=== PATIENT | male | born 1965 | race Caucasian/White ===

== ENCOUNTER 2016-10-09 11:33 | Inpatient (IN) | payer BC ==
[~2016-10-09] VITALS: Ht 190.5 cm; Wt 77.2 kg
[2016-10-09 12:19] LABS: BASO # 0.1 x10^3/uL (0.0-0.2); BASO % 1 % (0-3); EOS % 5 % (0-3); HEMATOCRIT 48.8 % (39.0-53.0); HEMOGLOBIN 16.6 g/dL (13.0-17.5); LYMPH # 1.9 x10^3/uL (1.0-4.8); LYMPH % 23 % (24-48); MEAN CORPUSCULAR HEMOGLOBIN 32 pg (25-35); MEAN CORPUSCULAR HGB CONC 34 g/dL (31-37); MEAN CORPUSCULAR VOLUME 94 fL (79-100); MONO % 5 % (0-9); NEUT % 66 % (31-73); PLATELET COUNT 261 x10^3/uL (140-400); RED BLOOD COUNT 5.22 x10^6/uL (4.30-5.70); RED CELL DISTRIBUTION WIDTH 13.6 % (11.5-14.5); WHITE BLOOD COUNT 8.1 x10^3/uL (4.0-11.0)
--- NOTE | 2016-10-09 12:19 | PHYS DOC ---
Past Medical History Past Medical History: Other Additional Past Medical Histor: emphysema Past Surgical History: Tonsillectomy, Other Additional Past Surgical Histo: adenoids, hernia repairs, R fourth finger Additional Information: 2 PAD smoker Alcohol Use: Occasionally Drug Use: None Adult General Chief Complaint Chief Complaint: UPPER EXTREMITY NUMBNESS [facility] Patient is a 51 year old male who presents with left dorsum hand numbness that gradually spread to involve dorsum of thumb, complete dorsum of hand, and now lateral and posterior aspect of forearm. He woke with initial symptoms at 0600 today. Was feeling fine when he went to bed. Symptoms are constant. He denies chest pain, dyspnea, tingling, weakness, headache, vision changes, dizziness, back pain. No differences with range of motion of shoulder or neck. Review of Systems Review of Systems Constitutional: Denies fever or chills [] Eyes: Denies change in visual acuity, redness, or eye pain [] HENT: Denies nasal congestion or sore throat [] Respiratory: Denies cough or shortness of breath [] Cardiovascular: No additional information not addressed in HPI [] GI: Denies abdominal pain, nausea, vomiting, bloody stools or diarrhea [] : Denies dysuria or hematuria [] Musculoskeletal: Denies back pain or joint pain [] Integument: Denies rash or skin lesions [] Neurologic: Denies headache or focal weakness [] Endocrine: Denies polyuria or polydipsia [] Allergies Allergies Allergies Coded Allergies Type Severity Reaction Last Updated Verified No Known Drug Allergies 10/09/16 No Physical Exam Physical Exam Constitutional: Well developed, well nourished, no acute distress, non-toxic appearance. [] HENT: Normocephalic, atraumatic, bilateral external ears normal, oropharynx moist, no oral exudates, nose normal. [] Eyes: PERRLA, EOMI, conjunctiva normal, no discharge. [] Neck: Normal range of motion, no tenderness, supple. [] Cardiovascular:Heart rate regular rhythm [] Lungs & Thorax: Bilateral breath sounds clear to auscultation [] Abdomen: Bowel sounds normal, soft, no tenderness. [] Skin: Warm, dry, no erythema, no rash. [] Back: Normal range of motion. [] Extremities: No tenderness, ROM intact, no edema. [] Neurologic: Alert and oriented X 3, normal motor function, normal sensory function with the exception of diminished sensation to light touch in the posterolateral aspect of left forearm and dorsum of hand and thumb, no focal deficits noted, cranial nerves II through XII intact, no nystagmus, no extremity drift. [] Psychologic: Affect normal, judgement normal, mood normal. [] Current Patient Data Vital Signs Vital Signs Date Time Temp Pulse Resp B/P Pulse Ox O2 Delivery O2 Flow Rate FiO2 10/09/16 13:00 71 19 116/81 98 10/09/16 12:00 Room Air 10/09/16 11:50 97.7 97.7 Lab Values Laboratory Tests Test 10/09/16 11:43 10/09/16 12:25 White Blood Count 8.1x10^3/uL (4.0-11.0) Red Blood Count 5.22x10^6/uL (4.30-5.70) Hemoglobin 16.6g/dL (13.0-17.5) Hematocrit 48.8% (39.0-53.0) Mean Corpuscular Volume 94fL (79-100) Mean Corpuscular Hemoglobin 32pg (25-35) Mean Corpuscular Hemoglobin Concent 34g/dL (31-37) Red Cell Distribution Width 13.6% (11.5-14.5) Platelet Count 261x10^3/uL (140-400) Neutrophils (%) (Auto) 66% (31-73) Lymphocytes (%) (Auto) 23% (24-48) L Monocytes (%) (Auto) 5% (0-9) Eosinophils (%) (Auto) 5% (0-3) H Basophils (%) (Auto) 1% (0-3) Neutrophils # (Auto) 5.4x10^3uL (1.8-7.7) Lymphocytes # (Auto) 1.9x10^3/uL (1.0-4.8) Monocytes # (Auto) 0.4x10^3/uL (0.0-1.1) Eosinophils # (Auto) 0.4x10^3/uL (0.0-0.7) Basophils # (Auto) 0.1x10^3/uL (0.0-0.2) Sodium Level 135mmol/L (136-145) L Potassium Level 4.5mmol/L (3.5-5.1) Chloride Level 100mmol/L (98-107) Carbon Dioxide Level 28mmol/L (21-32) Anion Gap 7 (6-14) Blood Urea Nitrogen 8mg/dL (8-26) Creatinine 0.8mg/dL (0.7-1.3) Estimated GFR (Cockcroft-Gault) 101.5 Glucose Level 86mg/dL (70-99) Calcium Level 9.3mg/dL (8.5-10.1) Troponin I Quantitative < 0.017ng/mL (0.000-0.055) Urine Opiates Screen Neg (NEG) Urine Methadone Screen Neg (NEG) Urine Barbiturates Neg (NEG) Urine Phencyclidine Screen Neg (NEG) Urine Amphetamine/Methamphetamine Pos (NEG) Urine Benzodiazepines Screen Neg (NEG) Urine Cocaine Screen Neg (NEG) Urine Cannabinoids Screen Pos (NEG) Urine Ethyl Alcohol Pos (NEG) Laboratory Tests 10/09/16 11:43 Laboratory Tests 10/09/16 11:43 EKG EKG EKG as interpreted by me as normal sinus rhythm, rate 67, no ST-T changes, normal intervals, no ectopy Radiology/Procedures Radiology/Procedures Chest xray as interpreted by me with no acute cardiopulmonary disease process CT head without contrast Impression: No acute intracranial abnormality is seen. Paranasal sinus mucosal thickening. DICTATED and SIGNED BY: KATIE MISTRY MD DATE: 10/09/16 1230 Course & Med Decision Making Course & Med Decision Making Pertinent Labs and Imaging studies reviewed. (See chart for details) Workup is largely unremarkable other than UDS concerning for substance abuse. Given symptoms, will admit for concern of stroke. He is not a candidate for thrombolysis due to long time of onset of symptoms. Discussed case with Dr. Jay, who will admit. Neurology consult placed. Dragon Disclaimer Dragon Disclaimer This electronic medical record was generated, in whole or in part, using a voice recognition dictation system. Departure Departure Impression: Primary Impression: Left arm numbness Disposition: ADMITTED INPATIENT Condition: STABLE Tomasa HUBBARD MD Oct 09, 2016 12:19
[2016-10-09 12:30] LABS: CALCIUM 9.3 mg/dL (8.5-10.1); CREATININE 0.8 mg/dL (0.7-1.3); GFR 101.5; POTASSIUM 4.5 mmol/L (3.5-5.1)
--- NOTE | 2016-10-09 12:33 | RAD ---
2 view CXR: Clinical indications: Left arm numbness this morning. Findings: Hyperinflation is seen consistent with COPD. Old granulomatous disease is evident. No acute lung infiltrate or pleural effusion or pulmonary edema or lung mass or pneumothorax is seen. Calcified lymph nodes are seen within the mediastinum and both lemuel due to old granulomatous disease. The heart size, pulmonary vasculature, mediastinum and both lemuel are otherwise unremarkable. The osseous structures appear intact. Impression: No acute radiographic abnormality is seen. COPD.
--- NOTE | 2016-10-09 12:36 | RAD ---
Clinical indications: Left posterior hand and lateral forearm numbness for 6 hours.. Technique: Noncontrast axial cross sectional scanning of the head was performed. PQRS Compliance Statement: One or more of the following individualized dose reduction techniques were utilized for this examination: 1. Automated exposure control 2. Adjustment of the mA and/or kV according to patient size 3. Use of iterative reconstruction technique Findings: No acute intracranial hemorrhage or midline shift or mass-effect or hydrocephalus or extra-axial fluid collection is seen. No focal hypodense area or sulci effacement is seen to indicate an acute infarct or edema radiographically. No skull fracture or pneumocephalus is seen. There is mild mucosal thickening of the upper right maxillary sinus. The maxillary sinuses are not completely seen in this study. There is mild mucosal thickening of the ethmoid sinuses bilaterally. There is a mucous retention cyst or polyp measuring 18 mm in size within the left sphenoid sinus. Impression: No acute intracranial abnormality is seen. Paranasal sinus mucosal thickening.
[2016-10-09 12:42] LABS: BARBITURATES NEG (NEG); BENZODIAZEPINES NEG (NEG); CANNABINOIDS POS (NEG); COCAINE NEG (NEG); METHADONE NEG (NEG); OPIATES NEG (NEG); PHENCYCLIDINE NEG (NEG)
[2016-10-09 12:44] LABS: ETHANOL, URINE POS (NEG)
--- NOTE | 2016-10-09 12:50 | EKG ---
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
[2016-10-09] MEDS ORDERED: ONDANSETRON PF 4 MG/2 ML VIAL. IV PRN ×2 (13:15→17:15)
[2016-10-09] MEDS ORDERED: ACETAMINOPHEN 325 MG TABLET. PO PRN ×2 (13:15→17:15)
--- NOTE | 2016-10-09 13:48 | ACF ---
Admission Forms Criteria NEUROLOGY GRG Clinical Indications for Admission to Inpatient Care (Place ' X' for any and all applicable criteria): Hospital admission is needed for appropriate care of the patient because of 1 or more of the following: [ ]I. Encephalitis [ ]II. Severe MAKE UP MAN infections indicated by 1 or more of the following(1)(2)(3) : [ ]a) Intracranial abscess [ ]b) Spinal abscess or myelitis [ ]c) Tuberculous or other nonbacterial, nonviral MAKE UP MAN infection(8) [ ]III. Vasculitis and 1 or more of the following(14)(15): []a) Altered mental status that is severe or persistent or other acute neurologic change []b) Psychosis []c) Seizure [ ]IV. Status epilepticus or repetitive seizures not controlled with emergent treatment [A] (7)(8) [ ]V. Altered mental status that is severe or persistent [ ]. Transient alteration in consciousness with high-risk etiology; examples include (12)(13): [ ]a) Cardiovascular source [ ]b) Cataplexy [ ]VII. Cerebral aneurysm requiring ANY ONE of the following(14): [ ]a) IV antihypertensives or vasoactive agents [ ]b) Sedation and analgesia for suspected leak [ ]c) Need for external ventricular drainage and cerebral perfusion pressure monitoring [ ]d) Emergent evaluation to determine need for surgical clipping or endovascular coiling by interventional radiology. If surgery is required ( Also use Craniotomy, Supratentorial, for Surgery of Bleeding Intracranial Aneurysm (for bleeding aneurysm) or Craniotomy, Supratentorial (for nonbleeding aneurysm) as appropriate. [X]VIII. New-onset severe neurologic symptom requiring inpatient care indicated by ANY ONE of the following: [ ]a) Aphasia(15) [ ]b) Weakness (grade 3 or less) [ ]c) Paralysis (eg, hemiplegia) [ ]d) Spasticity(16) [ ]e) Dystonia [ ]e) Ataxia(17) [ ]f) Amnesia(18) [ ]g) Involuntary movements(19) [ ]h) Vertigo [ ] Visual loss [X]i) Other severe neurologic finding (eg, papilledema, mass effect on imaging, myoclonus not treatable at alternative level of care (eg, observation care) [ ]IX. Guillain-Berea syndrome(20) [ ]X. Myasthenia gravis crisis or inpatient monitoring need as indicated by 1 or more of the following(21): [ ]a) Intensive treatment (eg, course of plasmapheresis) with inadequate outpatient situation to monitor patients status [ ]b) Inadequate airway protection [ ]c) Respiratory insufficiency requiring intubation or inpatient. monitoring [ ]d) Progressive dysphagia with failure to thrive [ ]XI. Multiple sclerosis or other acute demyelinating disease requiring inpatient care as indicated by 1 or more of the following (22)(23): [ ]a) Acute severe deterioration requiring inpatient treatment (eg, IV steroids, plasmapheresis, close observation) [ ]b) Acute complication requiring inpatient care (eg, sepsis, severe decubitus, aspiration) [ ]XII.Parkinson disease requiring inpatient care (Also use Optimal Recovery Care Criteria or General Recovery Criteria as appropriate) indicated by 1 or more of the following(25): [ ]a) Infection (eg, aspiration pneumonia) not treatable at alternative level of care [ ]b Dehydration that is severe or persistent [ ]c) Life-threatening agitation or psychotic behavior not treatable on emergency, observation care, or alternative level (eg, residential) basis [ ]d) Severe medication withdrawal effects (eg, freezing, neuroleptic malignant syndrome) not responsive to emergency and observation care treatment ( as appropriate) [ ]e) Other severe manifestation not treatable at alternative level of care [ ]XII. Amyotrophic lateral sclerosis with inpatient care needs as indicated by ANY ONE of the following(26): [ ]a) Acute complications (eg, aspiration pneumonia, sepsis ) requiring inpatient care ( see other optimal Recovery Guideline as appropriate) [ ]b) Dehydration that is severe persistent AND artificial support desired [ ]c) Inadequate airway protection AND artificial support desired [ ]d) Severe ventilatory insufficiency AND artificial support desired [ ]XIII. Myasthenia gravis crisis or inpatient monitoring need as indicated by 1 or more of the following(21): [] a) Inadequate airway protection []b) Respiratory insufficiency requiring intubation or inpatient monitoring []c) Progressive dysphagia with failure to thrive []d) Intensive treatment (e.g., course of plasmapheresis) with inadequate outpatient situation to monitor patients status [ ]XIV. Multiple sclerosis or other acute demyelinating disease requiring inpatient care indicated by 1 or more of the following[C](36)(43)(44)(45)(46): []a) Acute severe deterioration requiring inpatient treatment (eg, IV steroids, plasmapheresis, close observation) []b) Acute complication requiring inpatient care (eg, sepsis, severe decubitus, aspiration) [ ]XV. Intracranial hypertension (e.g., pseudotumor cerebri) requiring inpatient care (e.g., acute visual loss, inadequate oral intake) (47)(48)(49) [ ]XVI. Parkinson disease requiring inpatient care (Also use Optimal Recovery Care Criteria or General Recovery Criteria as appropriate) indicated by 1 or more of the following(25): [] a) Infection (e.g., aspiration pneumonia) not treatable at alternative level of care []b) Volume depletion not responsive to emergency and observation care treatment (as appropriate) []c) Life-threatening agitation or psychotic behavior not treatable on emergency, observation care, or alternative level (e.g., residential) basis []d) Severe medication withdrawal effects (e.g., freezing, neuroleptic malignant syndrome) not responsive to emergency and observation care treatment (as appropriate) []e) Other severe manifestation not treatable at alternative level of care [ ]XVII. Amyotrophic lateral sclerosis with inpatient care needs as indicated by1 or more of the following(42): []a) Acute complications (eg, aspiration pneumonia, sepsis) requiring inpatient care (see other Optimal Recovery Guideline or General Recovery Guideline as appropriate) []b) Dehydration that is severe or persistent AND artificial support desired []c) Inadequate airway protection AND artificial support desired []d) Severe ventilatory insufficiency AND artificial support desired [ ]XVIII. Severe myopathy, neuropathy, or other neuromuscular disease indicated by 1 or more of the following(42)(52)(53)(54): []a ) New-onset severe diffuse weakness (eg, strength 3/5 or less) []b) Severe dysphagia []c) Dyspnea at rest or with minimal exertion (new) []d) Inadequate airway protection []e) Inadequate ventilation indicated by 1 or more of the following : i) Partial pressure of carbon dioxide greater than 44 mm Hg ( 5.9 kPa) (new) ii) Reduced peak expiratory flow rate (new) iii) Vital capacity less than 50% of predicted (less than 15 mL/kg) iv) Peak inspiratory force less negative than -30 cm H2O (- 2942 Pa) [ ]XVII.Complications of congenital or degenerative disease (eg, infection, seizures, dehydration, injury) not responsive to emergency and observation care treatment (as appropriate ) [C](16)(29)(30) [ ]XVIII.Suspected or confirmed nerve or muscle toxic injury, including ANY ONE of the following: [ ]a) Rhabdomyolysis(31) i) Acute renal failure ii) Dehydration that is severe or persistent iii) Altered mental status that is severe or persistent iv) Electrolyte abnormality that remains after emergency or observation level care ( as appropriate) [ ]b) Botulism(32) [ ]c) Other severe toxin-induced sign or symptom [ ]XIX. Neurologic trauma requiring inpatient treatment (medical) indicated by ANY ONE of the following(33)(34): [ ]a) Vital signs or neurologic signs more frequently than every 4 hours [ ]b) Hyperosmolar therapy [ ]c) Respiratory monitoring [ ]d) Intracranial pressure monitoring and treatment [ ]e) Stabilization and immobilization device placement (eg, braces, body jacket) [ ]f) Intubation & mechanical ventilation for airway protection or therapeutic hyperventilation [ ]g) Other treatment or monitoring needed that requires inpatient level of care [ ]XX.Complications of neurologic devices (eg, ventricular shunt, neurostimulator) requiring 1 or more of the following(35)(36): [ ]a) IV antibiotics with monitoring while awaiting culture results [ ]b) Monitoring for hydrocephalus [ ]XXI. Neurology condition symptom, or finding for which emergency and observation care have failed or are not considered appropriate. See General Criteria: Observation Care ISC, General Admission Criteria GRG, or Pediatric General Admission Criteria GRG guideline as appropriate. The original [facility] content created by [facility] has been revised. The portions of the content which have been revised are identified through the use of italic text or in bold, and [facility] has neither reviewed nor approved the modified material. All other unmodified content is copyright [facility] Please see references footnoted in the original [facility] edition 2016 Admission Criteria Met?: Yes JEFRY ACEVEDO Oct 09, 2016 13:48
[2016-10-09 14:16] VITALS: BP 138/83
[2016-10-09] MEDS ORDERED: DEXT30CA6 PO (14:22)
[2016-10-09 14:40] VITALS: BP 138/83
[2016-10-09] MEDS: ASPIRIN 325 MG TABLET PO SCH (15:57)
--- NOTE | 2016-10-09 16:43 | PDOC2 ---
NEUROLOGY CONSULT Date of Admission Date of Admission DATE: 10/09/16 TIME: 16:24 Reason for Consult Reason for Consult: IMPRESSION: Left UE numbness. COPD Emphysema. PVD. Peripheral neuropathy possible. ADHD per Hx. Smoking Drinking. Marijuana use. Amphetamine positive in test but he stated he takes 30 mg Adderall daily. RECOMMENDATIONS/PLAN: ASA 325 mg daily. Vit B1 100 mg daily. Neurontin 100 mg tid. Brain MRI w/o contrast. Carotid A US + Doppler. Echo + bubble study. Fasting lipid panel in a.m Lab: Vit B12 HISTORY OF THE PRESENT ILLNESS: 51-y-old male patient with above medical diseases and long standing Hx of smoking and drinking has symptoms of numbness in his left hand radial side to forearm and elbow area since he wake up in the morning of 10/09. No motor deficits complained. PAST MEDICAL HISTORY: Please see above. PAST SURGERY HISTORY: Hernia Repair Right finger surgery. ALLERGY: NKDA Unknown MEDICATIONS: Refer to [facility] FAMILY HISTORY: Non contributory. SOCIAL HISTORY: Lives at home. Denies illicit drug use. He smokes 2 pack of cigarettes a day for 40 years. He drinks 24 beers a week for 35 years. REVIEW OF SYSTEMS: Constitutional: No cachexia. Head: No recent traumatic brain or head injury. Skin: No edema, or rash. Ear: No infection. Eyes: No vision loss or color blindness. Nose: No bleeding or purulent discharges. Hearing: No hearing decrease. Neck: No injury. Cardiac: No WI, arrhythmia. Pulmonary: COPD. GI: No GI ulcer, GI bleeding. Urinary/genital: No dysuria, incontinence, urinary retention. Endocrinologic: No cousin face, craniofacial dysmorphism, polydactyly. Skeletomuscular: No muscular atrophy, deformity. Neurological: see HP. Psychiatric: Smoking, drinking and using marijuana. Otherwise, not [id number] review of systems. PHYSICAL EXAMINATION: General appearance is in subacute distress. HEENT: Normocephalic and nontraumatic. Eyes, nose, ears, and throat are unremarkable. Neck is supple. No lymphadenopathy. No crepitus. Cardiovascular: S1, S2, regular rate and rhythm. Pulmonary: Clear to auscultation bilaterally. Abdomen: Bowel sounds are positive. Abdomen is soft, nontender, and nondistended. Extremities: No rash, lesions, or edema. No restriction of range of motion NEUROLOGICAL EXAMINATION: Alert Oriented to time, place and person. PERRL. EOMI. CN: no focal findings. Muscle tone: within normal. Muscle strength: 5 DTR: 2 Plantar reflex: Flexor/Neutral response bilaterally Gait: not examined in bed. Sensory exam: seemed mildly decreased to touch in radial aspect of left hand. No acute cerebellar signs elicited. Current Medications Current Medications Current Medications Ondansetron HCl (Zofran) 4 mg PRN Q8HRS PRN IV NAUSEA/VOMITING; Start 10/09/16 at 13:15; Stop 10/10/16 at 13:14 Acetaminophen (Tylenol) 650 mg PRN Q4HRS PRN PO FEVER; Start 10/09/16 at 13:15 ; Stop 10/10/16 at 13:14 Aspirin (Olga Aspirin) 325 mg DAILYWBKFT PO Last administered on 10/09/16t 15: 57; Start 10/09/16 at 16:00 Active Scripts Active Reported Adderall Xr 30 Mg Capsule (Dextroamphetamine/Amphetamine) 30 Mg Cap.er.24h 30 Mg PO DAILY Allergies Allergies: Coded Allergies: No Known Drug Allergies (Unverified , 10/09/16) Vitals VITALS Vital Signs Date Time Temp Pulse Resp B/P Pulse Ox O2 Delivery O2 Flow Rate FiO2 10/09/16 15:07 Room Air 10/09/16 14:40 98.3 68 138/83 99 98.3 10/09/16 14:16 22 Labs Labs Laboratory Tests Test 10/09/16 11:43 10/09/16 12:25 White Blood Count 8.1x10^3/uL (4.0-11.0) Red Blood Count 5.22x10^6/uL (4.30-5.70) Hemoglobin 16.6g/dL (13.0-17.5) Hematocrit 48.8% (39.0-53.0) Mean Corpuscular Volume 94fL (79-100) Mean Corpuscular Hemoglobin 32pg (25-35) Mean Corpuscular Hemoglobin Concent 34g/dL (31-37) Red Cell Distribution Width 13.6% (11.5-14.5) Platelet Count 261x10^3/uL (140-400) Neutrophils (%) (Auto) 66% (31-73) Lymphocytes (%) (Auto) 23% (24-48) Monocytes (%) (Auto) 5% (0-9) Eosinophils (%) (Auto) 5% (0-3) Basophils (%) (Auto) 1% (0-3) Neutrophils # (Auto) 5.4x10^3uL (1.8-7.7) Lymphocytes # (Auto) 1.9x10^3/uL (1.0-4.8) Monocytes # (Auto) 0.4x10^3/uL (0.0-1.1) Eosinophils # (Auto) 0.4x10^3/uL (0.0-0.7) Basophils # (Auto) 0.1x10^3/uL (0.0-0.2) Sodium Level 135mmol/L (136-145) Potassium Level 4.5mmol/L (3.5-5.1) Chloride Level 100mmol/L (98-107) Carbon Dioxide Level 28mmol/L (21-32) Anion Gap 7 (6-14) Blood Urea Nitrogen 8mg/dL (8-26) Creatinine 0.8mg/dL (0.7-1.3) Estimated GFR (Cockcroft-Gault) 101.5 Glucose Level 86mg/dL (70-99) Calcium Level 9.3mg/dL (8.5-10.1) Troponin I Quantitative < 0.017ng/mL (0.000-0.055) Urine Opiates Screen Neg (NEG) Urine Methadone Screen Neg (NEG) Urine Barbiturates Neg (NEG) Urine Phencyclidine Screen Neg (NEG) Urine Amphetamine/Methamphetamine Pos (NEG) Urine Benzodiazepines Screen Neg (NEG) Urine Cocaine Screen Neg (NEG) Urine Cannabinoids Screen Pos (NEG) Urine Ethyl Alcohol Pos (NEG) Laboratory Tests Test 10/09/16 11:43 10/09/16 12:25 White Blood Count 8.1x10^3/uL (4.0-11.0) Red Blood Count 5.22x10^6/uL (4.30-5.70) Hemoglobin 16.6g/dL (13.0-17.5) Hematocrit 48.8% (39.0-53.0) Mean Corpuscular Volume 94fL (79-100) Mean Corpuscular Hemoglobin 32pg (25-35) Mean Corpuscular Hemoglobin Concent 34g/dL (31-37) Red Cell Distribution Width 13.6% (11.5-14.5) Platelet Count 261x10^3/uL (140-400) Neutrophils (%) (Auto) 66% (31-73) Lymphocytes (%) (Auto) 23% (24-48) Monocytes (%) (Auto) 5% (0-9) Eosinophils (%) (Auto) 5% (0-3) Basophils (%) (Auto) 1% (0-3) Neutrophils # (Auto) 5.4x10^3uL (1.8-7.7) Lymphocytes # (Auto) 1.9x10^3/uL (1.0-4.8) Monocytes # (Auto) 0.4x10^3/uL (0.0-1.1) Eosinophils # (Auto) 0.4x10^3/uL (0.0-0.7) Basophils # (Auto) 0.1x10^3/uL (0.0-0.2) Sodium Level 135mmol/L (136-145) Potassium Level 4.5mmol/L (3.5-5.1) Chloride Level 100mmol/L (98-107) Carbon Dioxide Level 28mmol/L (21-32) Anion Gap 7 (6-14) Blood Urea Nitrogen 8mg/dL (8-26) Creatinine 0.8mg/dL (0.7-1.3) Estimated GFR (Cockcroft-Gault) 101.5 Glucose Level 86mg/dL (70-99) Calcium Level 9.3mg/dL (8.5-10.1) Troponin I Quantitative < 0.017ng/mL (0.000-0.055) Urine Opiates Screen Neg (NEG) Urine Methadone Screen Neg (NEG) Urine Barbiturates Neg (NEG) Urine Phencyclidine Screen Neg (NEG) Urine Amphetamine/Methamphetamine Pos (NEG) Urine Benzodiazepines Screen Neg (NEG) Urine Cocaine Screen Neg (NEG) Urine Cannabinoids Screen Pos (NEG) Urine Ethyl Alcohol Pos (NEG) MALIHA CALABRESE MD Oct 09, 2016 16:43
[2016-10-09] MEDS: THIAMINE 100 MG TABLET. PO SCH (16:44)
[2016-10-09] MEDS: NICOTINE 21MG PATCH. TD PRN (16:45)
[2016-10-09] MEDS ORDERED: HYDROCODONE/APAP 5/325MG TABLET. PO PRN (17:15)
[2016-10-09] MEDS ORDERED: hydrALAZINE 20 MG/ML VIAL. IVP PRN (17:15)
[2016-10-09] MEDS ORDERED: ALBUTEROL SULFATE 2.5 MG/3 ML NEBU. NEB PRN (17:15)
--- NOTE | 2016-10-09 17:15 | PDOC1 ---
History and Physical Social History Smoke: 2 packs per day ALCOHOL: rare Drugs: None Current Problem List Problem List Problems Medical Problems: (1) Arm numbness left Status: Acute (2) Left arm numbness Status: Acute Current Medications Current Medications Current Medications Medications (Trade) Dose Ordered Sig/Paris Start Time Stop Time Status Last Admin Dose Admin Acetaminophen (Tylenol) 650 mg PRN Q4HRS PRN 10/09/16 13:15 10/10/16 13:14 Aspirin (Olga Aspirin) 325 mg DAILYWBKFT 10/09/16 16:00 10/09/16 15:57 325 MG Gabapentin (Neurontin) 100 mg TID 10/09/16 21:00 Nicotine (Nicoderm Cq 21mg) 1 patch PRN DAILY PRN 10/09/16 16:45 10/09/16 16:45 1 PATCH Ondansetron HCl (Zofran) 4 mg PRN Q8HRS PRN 10/09/16 13:15 10/10/16 13:14 Thiamine HCl (Vitamin B-1) 100 mg DAILY 10/09/16 17:00 10/09/16 16:44 100 MG Allergies Allergies Allergies Coded Allergies Type Severity Reaction Last Updated Verified No Known Drug Allergies 10/09/16 No ROS Review of System CONSTITUTIONAL: No fever or chills EYES: No recent changes SKIN: No rash or itching CARDIOVASCULAR: No chest pain, syncope, palpitations, or edema RESPIRATORY: No SOB or cough GASTROINTESTINAL: No nausea, vomiting or abdominal pain NEUROLOGICAL: No headaches or weakness ENDOCRINE: No cold or heat intolerance GENITOURINARY: No urgency or frequency of urination MUSCULOSKELETAL: left upper extremity numbness LYMPHATICS: No enlarged lymph nodes PSYCHIATRIC: No anxiety or depression Physical Exam Physical Exam GEN.: No apparent distress. Alert and oriented times3 HEENT: Head is normocephalic, atraumatic NECK: Supple. no JVD LUNGS: Clear to auscultation. normal airflow HEART: RRR, S1, S2 present. Peripheral pulses intact ABDOMEN: Soft, nontender. Positive bowel sounds. EXTREMITIES: Without any cyanosis. NEUROLOGIC: Normal speech, normal tone PSYCHIATRIC: Normal affect, normal mood. SKIN: dry. Vitals Vitals Vital Signs Date Time Temp Pulse Resp B/P Pulse Ox O2 Delivery O2 Flow Rate FiO2 10/09/16 15:07 Room Air 10/09/16 14:40 98.3 68 138/83 99 98.3 10/09/16 14:16 22 Labs Labs Laboratory Tests Test 10/09/16 11:43 10/09/16 12:25 White Blood Count 8.1x10^3/uL (4.0-11.0) Red Blood Count 5.22x10^6/uL (4.30-5.70) Hemoglobin 16.6g/dL (13.0-17.5) Hematocrit 48.8% (39.0-53.0) Mean Corpuscular Volume 94fL (79-100) Mean Corpuscular Hemoglobin 32pg (25-35) Mean Corpuscular Hemoglobin Concent 34g/dL (31-37) Red Cell Distribution Width 13.6% (11.5-14.5) Platelet Count 261x10^3/uL (140-400) Neutrophils (%) (Auto) 66% (31-73) Lymphocytes (%) (Auto) 23% (24-48) Monocytes (%) (Auto) 5% (0-9) Eosinophils (%) (Auto) 5% (0-3) Basophils (%) (Auto) 1% (0-3) Neutrophils # (Auto) 5.4x10^3uL (1.8-7.7) Lymphocytes # (Auto) 1.9x10^3/uL (1.0-4.8) Monocytes # (Auto) 0.4x10^3/uL (0.0-1.1) Eosinophils # (Auto) 0.4x10^3/uL (0.0-0.7) Basophils # (Auto) 0.1x10^3/uL (0.0-0.2) Sodium Level 135mmol/L (136-145) Potassium Level 4.5mmol/L (3.5-5.1) Chloride Level 100mmol/L (98-107) Carbon Dioxide Level 28mmol/L (21-32) Anion Gap 7 (6-14) Blood Urea Nitrogen 8mg/dL (8-26) Creatinine 0.8mg/dL (0.7-1.3) Estimated GFR (Cockcroft-Gault) 101.5 Glucose Level 86mg/dL (70-99) Calcium Level 9.3mg/dL (8.5-10.1) Troponin I Quantitative < 0.017ng/mL (0.000-0.055) Urine Opiates Screen Neg (NEG) Urine Methadone Screen Neg (NEG) Urine Barbiturates Neg (NEG) Urine Phencyclidine Screen Neg (NEG) Urine Amphetamine/Methamphetamine Pos (NEG) Urine Benzodiazepines Screen Neg (NEG) Urine Cocaine Screen Neg (NEG) Urine Cannabinoids Screen Pos (NEG) Urine Ethyl Alcohol Pos (NEG) Laboratory Tests Test 10/09/16 11:43 10/09/16 12:25 White Blood Count 8.1x10^3/uL (4.0-11.0) Red Blood Count 5.22x10^6/uL (4.30-5.70) Hemoglobin 16.6g/dL (13.0-17.5) Hematocrit 48.8% (39.0-53.0) Mean Corpuscular Volume 94fL (79-100) Mean Corpuscular Hemoglobin 32pg (25-35) Mean Corpuscular Hemoglobin Concent 34g/dL (31-37) Red Cell Distribution Width 13.6% (11.5-14.5) Platelet Count 261x10^3/uL (140-400) Neutrophils (%) (Auto) 66% (31-73) Lymphocytes (%) (Auto) 23% (24-48) Monocytes (%) (Auto) 5% (0-9) Eosinophils (%) (Auto) 5% (0-3) Basophils (%) (Auto) 1% (0-3) Neutrophils # (Auto) 5.4x10^3uL (1.8-7.7) Lymphocytes # (Auto) 1.9x10^3/uL (1.0-4.8) Monocytes # (Auto) 0.4x10^3/uL (0.0-1.1) Eosinophils # (Auto) 0.4x10^3/uL (0.0-0.7) Basophils # (Auto) 0.1x10^3/uL (0.0-0.2) Sodium Level 135mmol/L (136-145) Potassium Level 4.5mmol/L (3.5-5.1) Chloride Level 100mmol/L (98-107) Carbon Dioxide Level 28mmol/L (21-32) Anion Gap 7 (6-14) Blood Urea Nitrogen 8mg/dL (8-26) Creatinine 0.8mg/dL (0.7-1.3) Estimated GFR (Cockcroft-Gault) 101.5 Glucose Level 86mg/dL (70-99) Calcium Level 9.3mg/dL (8.5-10.1) Troponin I Quantitative < 0.017ng/mL (0.000-0.055) Urine Opiates Screen Neg (NEG) Urine Methadone Screen Neg (NEG) Urine Barbiturates Neg (NEG) Urine Phencyclidine Screen Neg (NEG) Urine Amphetamine/Methamphetamine Pos (NEG) Urine Benzodiazepines Screen Neg (NEG) Urine Cocaine Screen Neg (NEG) Urine Cannabinoids Screen Pos (NEG) Urine Ethyl Alcohol Pos (NEG) VTE Prophylaxis Ordered VTE Prophylaxis Devices: Yes VTE Pharmacological Prophylaxi: No AR DE LOS SANTOS MD Oct 09, 2016 17:15
--- NOTE | 2016-10-09 18:44 | HP ---
ADMIT DATE: 10/09/2016 CHIEF COMPLAINT: Left upper extremity numbness. HISTORY OF PRESENT ILLNESS: A 51-year-old male patient with a prior history of smoking for nearly more than 40 years, presented to the ER with left upper extremity numbness. The patient woke up with numbness this morning. His symptoms started on the dorsum of the hand around the wrist and slowly progressed to the arm region. Symptoms resolved by noon. He denies any weakness, palpitations, chest pain, shortness of breath or he denies any abnormal posture while he was sleeping and his son brought him to the hospital. PAST MEDICAL HISTORY: Suspected COPD, emphysema. PAST SURGICAL HISTORY: Hernia repair, right finger surgery. ALLERGIES: NKDA. HOME MEDICATIONS: Reviewed and reconciled. Please see MRAD. FAMILY HISTORY: Unknown. SOCIAL HISTORY: Smokes 2 packs a day for more than 50 years and occasionally takes alcohol. REVIEW OF SYSTEMS: Please see my electronic H and P. PHYSICAL EXAMINATION: Please see my electronic H and P. LABORATORY FINDINGS: 1. CBC, BMP reviewed, within normal limits including first set of troponins. 2. Toxicology negative except for methamphetamine, which is his home medication and also positive for cannabinoids and ethyl alcohol. DIAGNOSTIC DATA: 1. EKG: Personally reviewed. 2. Chest x-ray and CT: No acute process seen. ASSESSMENT: 1. Left upper extremity numbness, unclear etiology. Possible differentials, acute coronary syndrome versus peripheral neuropathy versus transient ischemic attack. 2. Questionable chronic obstructive pulmonary disease with emphysema. 3. Attention deficit hyperactivity disorder by history. 4. Nicotine ____ dependency. 5. ? Marijuana use. 6. ADHD PLAN: 1. The patient has been admitted to the hospital for further workup. Neurology has been consulted. 2. MRI of the brain, carotid Doppler, and echocardiogram pending. 3. We will order two sets of troponins. 4. Cardiology has been consulted to rule out any ACS. Given his risk factors, he may need stress test. 5. Nicotine patch. 6. Resume home medications. 7. Supportive care. 8. Physical therapy and occupation therapy. The patient did not have any symptoms of dysphagia. AR DE LOS SANTOS MD DR: ZAHEER/maren JOB#: [id number] / [id number] MCKAYLA
[2016-10-09 19:00] VITALS: BP 122/78
[2016-10-09] MEDS: GABAPENTIN 100 MG CAPSULE. PO SCH (19:56)
[2016-10-09 22:47] VITALS: BP 120/73
[2016-10-10 02:52] VITALS: BP 109/68
[2016-10-10 04:02] LABS: CALCIUM 8.9 mg/dL (8.5-10.1); CREATININE 0.8 mg/dL (0.7-1.3); GFR 101.5; POTASSIUM 4.3 mmol/L (3.5-5.1)
[2016-10-10 04:10] LABS: CHOLESTEROL/HDL RATIO 4.2
[2016-10-10 04:20] LABS: BASO # 0.1 x10^3/uL (0.0-0.2); BASO % 1 % (0-3); EOS % 6 % (0-3); HEMATOCRIT 45.6 % (39.0-53.0); HEMOGLOBIN 15.5 g/dL (13.0-17.5); LYMPH # 2.2 x10^3/uL (1.0-4.8); LYMPH % 33 % (24-48); MEAN CORPUSCULAR HEMOGLOBIN 32 pg (25-35); MEAN CORPUSCULAR HGB CONC 34 g/dL (31-37); MEAN CORPUSCULAR VOLUME 94 fL (79-100); MONO % 7 % (0-9); NEUT % 52 % (31-73); PLATELET COUNT 227 x10^3/uL (140-400); RED BLOOD COUNT 4.85 x10^6/uL (4.30-5.70); RED CELL DISTRIBUTION WIDTH 13.8 % (11.5-14.5); WHITE BLOOD COUNT 6.6 x10^3/uL (4.0-11.0)
[2016-10-10 07:00] VITALS: BP 121/74
--- NOTE | 2016-10-10 08:49 | RAD ---
Indication left arm numbness. Tingling. Suspect CVA. Grayscale color Doppler and spectral imaging, targeted to the carotid bifurcations, was performed. No prior similar imaging is available. On the right there is no significant plaquing. The color Doppler images do not suggest significant turbulence. The common carotid waveform and velocities are normal. The internal carotid waveform and velocities are also normal. The external carotid has a normal appearance. The vertebral is patent and demonstrates normal directional flow. On the left there is minimal plaquing. The color Doppler images do not suggest significant turbulence. The common carotid waveform and velocities are normal. The internal carotid waveform and velocities are also normal. The external carotid has a normal appearance. The vertebral is patent and demonstrates normal directional flow. IMPRESSION: No evidence of hemodynamically significant stenosis at either carotid bifurcation. Stenosis 0-50%. Note: Stenosis calculations for CT, MR and conventional angiography are based upon determination of the distal ICA diameter in accordance with the NASCET methodology. Stenosis calculations for doppler studies are derived from validated velocity criteria which are known to correlate with NASCET methodology of determining stenosis.
--- NOTE | 2016-10-10 09:18 | RAD ---
PROCEDURE MRI brain without contrast. HISTORY Left arm weakness for 1 day. TECHNIQUE Sagittal T1, axial T1, axial T2, axial FLAIR, axial T2 gradient, coronal T2, and diffusion imaging with ADC map were performed. COMPARISON CT head from 1 day earlier. FINDINGS The ventricles and sulci are within normal limits for age. There is no acute intracranial hemorrhage or extra-axial fluid collection. There is no mass effect or midline shift. There is no restricted diffusion to suggest an acute infarct. Cervicomedullary junction is unremarkable. Intracranial flow voids are preserved. There is pansinus mucosal thickening with left sphenoid sinus retention cyst. Mastoid air cells are clear. IMPRESSION No acute intracranial findings. Electronically signed by: Ruddy Noonan MD (October 10, 2016 09:16:38)
[2016-10-10] MEDS: GABAPENTIN 100 MG CAPSULE. PO SCH ×2 (09:31→14:26)
[2016-10-10] MEDS: THIAMINE 100 MG TABLET. PO SCH (09:32)
[2016-10-10] MEDS: ASPIRIN 325 MG TABLET PO SCH (09:32)
[2016-10-10] MEDS: NICOTINE 21MG PATCH. TD PRN (09:32)
--- NOTE | 2016-10-10 10:50 | PDOC2 ---
CARDIAC CONSULT DATE OF CONSULT Date of Consult DATE: 10/10/16 TIME: 10:50 REASON FOR CONSULT Reason for Consult: left hand numbness REFERRING PHYSICIAN Referring Physician: Dr. Amadou Kurtz SOURCE Source: Chart review, Patient HISTORY OF PRESENT ILLNESS HISTORY OF PRESENT ILLNESS 51 year old male who awakened about 0600 yesterday with numbness in the left hand. Resolved about 1800 yesterday and no further recurrence. No previous similar symptoms. Denies associated chest pain, dyspnea, dizziness, lightheadedness, color changes in hand. No acute changes in EKG and troponin levels not consistent with ACS. Reason for Visit: left hand numbness PAST MEDICAL HISTORY Cardiovascular: No pertinent hx Pulmonary: COPD (emphysema) CENTRAL NERVOUS SYSTEM: Other (denies) GI: No pertinent hx Heme/Onc: No pertinent hx Hepatobiliary: No pertinent hx Psych: No pertinent hx, Other (ADHD) Musculoskeletal: Other (none) Rheumatologic: No pertinent hx Infectious disease: No pertinent hx ENT: No pertinent hx Renal/: No pertinent hx Endocrine: No pertinent hx Dermatology: No pertinent hx PAST SURGICAL HISTORY Past Surgical History: Hernia Repair (BIH and umbilical ), Other (traumatic amp right 4th finger) FAMILY HISTORY Family History: Family History Unknown SOCIAL HISTORY Smoke: 2 packs per day (X 40 years) ALCOHOL: heavy (1 case per week) Drugs: Marijuana, Other (+ for amphetamines - reports ADDERALL use) CURRENT MEDICATIONS CURRENT MEDICATIONS Current Medications Medications (Trade) Dose Ordered Sig/Paris Route PRN Reason Start Time Stop Time Status Last Admin Dose Admin Aspirin (Olga Aspirin) 325 mg DAILYWBKFT PO 10/09/16 16:00 10/10/16 09:32 Gabapentin (Neurontin) 100 mg TID PO 10/09/16 21:00 10/10/16 09:31 Thiamine HCl (Vitamin B-1) 100 mg DAILY PO 10/09/16 17:00 10/10/16 09:32 Nicotine (Nicoderm Cq 21mg) 1 patch PRN DAILY PRN TD SMOKING CESSATION 10/09/16 16:45 10/10/16 09:32 ALLERGIES ALLERGIES: Coded Allergies: No Known Drug Allergies (Unverified , 10/09/16) ROS Review of System 14 point review with pertinent positives in HPI PHYSICAL EXAM General: Alert, Oriented X3, Cooperative, No acute distress HEENT: Atraumatic, PERRLA Lungs: Normal air movement, Other (scattered wheezing) Heart: Regular rate, Normal S1, Normal S2 Abdomen: Normal bowel sounds, Soft, No tenderness Extremities: No edema, Normal pulses Skin: No rashes Neuro: Normal speech Psych/Mental Status: Mental status NL, Mood NL MUSCULOSKELETAL: No deformity VITALS VITALS Vital Signs Date Time Temp Pulse Resp B/P Pulse Ox O2 Delivery O2 Flow Rate FiO2 10/10/16 07:00 97.9 62 18 121/74 94 Room Air 97.9 LABS Lab: Laboratory Tests Test 10/09/16 11:43 10/09/16 12:25 10/09/16 17:30 10/09/16 23:10 White Blood Count 8.1x10^3/uL (4.0-11.0) Red Blood Count 5.22x10^6/uL (4.30-5.70) Hemoglobin 16.6g/dL (13.0-17.5) Hematocrit 48.8% (39.0-53.0) Mean Corpuscular Volume 94fL (79-100) Mean Corpuscular Hemoglobin 32pg (25-35) Mean Corpuscular Hemoglobin Concent 34g/dL (31-37) Red Cell Distribution Width 13.6% (11.5-14.5) Platelet Count 261x10^3/uL (140-400) Neutrophils (%) (Auto) 66% (31-73) Lymphocytes (%) (Auto) 23% (24-48) Monocytes (%) (Auto) 5% (0-9) Eosinophils (%) (Auto) 5% (0-3) Basophils (%) (Auto) 1% (0-3) Neutrophils # (Auto) 5.4x10^3uL (1.8-7.7) Lymphocytes # (Auto) 1.9x10^3/uL (1.0-4.8) Monocytes # (Auto) 0.4x10^3/uL (0.0-1.1) Eosinophils # (Auto) 0.4x10^3/uL (0.0-0.7) Basophils # (Auto) 0.1x10^3/uL (0.0-0.2) Sodium Level 135mmol/L (136-145) Potassium Level 4.5mmol/L (3.5-5.1) Chloride Level 100mmol/L (98-107) Carbon Dioxide Level 28mmol/L (21-32) Anion Gap 7 (6-14) Blood Urea Nitrogen 8mg/dL (8-26) Creatinine 0.8mg/dL (0.7-1.3) Estimated GFR (Cockcroft-Gault) 101.5 Glucose Level 86mg/dL (70-99) Calcium Level 9.3mg/dL (8.5-10.1) Troponin I Quantitative < 0.017ng/mL (0.000-0.055) < 0.017ng/mL (0.000-0.055) < 0.017ng/mL (0.000-0.055) Vitamin B12 Level 323pg/mL (247-911) Urine Opiates Screen Neg (NEG) Urine Methadone Screen Neg (NEG) Urine Barbiturates Neg (NEG) Urine Phencyclidine Screen Neg (NEG) Urine Amphetamine/Methamphetamine Pos (NEG) Urine Benzodiazepines Screen Neg (NEG) Urine Cocaine Screen Neg (NEG) Urine Cannabinoids Screen Pos (NEG) Urine Ethyl Alcohol Pos (NEG) Test 10/10/16 03:10 White Blood Count 6.6x10^3/uL (4.0-11.0) Red Blood Count 4.85x10^6/uL (4.30-5.70) Hemoglobin 15.5g/dL (13.0-17.5) Hematocrit 45.6% (39.0-53.0) Mean Corpuscular Volume 94fL (79-100) Mean Corpuscular Hemoglobin 32pg (25-35) Mean Corpuscular Hemoglobin Concent 34g/dL (31-37) Red Cell Distribution Width 13.8% (11.5-14.5) Platelet Count 227x10^3/uL (140-400) Neutrophils (%) (Auto) 52% (31-73) Lymphocytes (%) (Auto) 33% (24-48) Monocytes (%) (Auto) 7% (0-9) Eosinophils (%) (Auto) 6% (0-3) Basophils (%) (Auto) 1% (0-3) Neutrophils # (Auto) 3.5x10^3uL (1.8-7.7) Lymphocytes # (Auto) 2.2x10^3/uL (1.0-4.8) Monocytes # (Auto) 0.5x10^3/uL (0.0-1.1) Eosinophils # (Auto) 0.4x10^3/uL (0.0-0.7) Basophils # (Auto) 0.1x10^3/uL (0.0-0.2) Sodium Level 137mmol/L (136-145) Potassium Level 4.3mmol/L (3.5-5.1) Chloride Level 103mmol/L (98-107) Carbon Dioxide Level 27mmol/L (21-32) Anion Gap 7 (6-14) Blood Urea Nitrogen 12mg/dL (8-26) Creatinine 0.8mg/dL (0.7-1.3) Estimated GFR (Cockcroft-Gault) 101.5 Glucose Level 93mg/dL (70-99) Calcium Level 8.9mg/dL (8.5-10.1) Triglycerides Level 123mg/dL (0-150) Cholesterol Level 179mg/dL (0-200) LDL Cholesterol, Calculated 111mg/dL (0-100) VLDL Cholesterol, Calculated 25mg/dL (0-40) Non-HDL Cholesterol Calculated 136mg/dL (0-129) HDL Cholesterol 43mg/dL (40-60) Cholesterol/HDL Ratio 4.2 IMAGES IMAGES CXR - COPD EKG EKG no acute changes ECHOCARDIOGRAM ECHOCARDIOGRAM pending ASSESSMENT/PLAN ASSESSMENT/PLAN 1. left hand numbness no evidence of vascular changes associated with this EKG without acute changes - not on telemetry echo pending 2. emphysema with persistent tobacco use cessation discussed 3. ADHD + for amphetamines/meth [facility] use of ADDERALL 4. ETOH abuse admits to a case of beer / week 5. THC use Problems: DHEERAJ VILLA DIE TESTER October 10, 2016 10:50
[2016-10-10 10:56] VITALS: BP 129/83
--- NOTE | 2016-10-10 11:56 | PDOC ---
PROGRESS NOTES Chief Complaint Chief Complaint 1. Left upper extremity numbness, unclear etiology. Possible differentials, acute coronary syndrome versus peripheral neuropathy versus transient ischemic attack. 2. Questionable chronic obstructive pulmonary disease with emphysema. 3. Attention deficit hyperactivity disorder by history. 4. Nicotine dependency. 5. Marijuana use. Plan MRI no acute process Echo pending Aspirin Nicotine patch PT/OT appreciate cardiology recommendation. labs reviewed. History of Present Illness History of Present Illness no weakness no numbness feeling better. Vitals Vitals Vital Signs Date Time Temp Pulse Resp B/P Pulse Ox O2 Delivery O2 Flow Rate FiO2 10/10/16 10:56 98.1 61 18 129/83 97 Room Air 98.1 Physical Exam General: Alert, Oriented X3 Heart: Normal S1, Normal S2 Lungs: Clear, Wheezing Abdomen: Normal bowel sounds, Soft Extremities: No clubbing Labs LABS Laboratory Tests Test 10/09/16 12:25 10/09/16 17:30 10/09/16 23:10 10/10/16 03:10 Urine Opiates Screen Neg (NEG) Urine Methadone Screen Neg (NEG) Urine Barbiturates Neg (NEG) Urine Phencyclidine Screen Neg (NEG) Urine Amphetamine/Methamphetamine Pos (NEG) Urine Benzodiazepines Screen Neg (NEG) Urine Cocaine Screen Neg (NEG) Urine Cannabinoids Screen Pos (NEG) Urine Ethyl Alcohol Pos (NEG) Troponin I Quantitative < 0.017ng/mL (0.000-0.055) < 0.017ng/mL (0.000-0.055) White Blood Count 6.6x10^3/uL (4.0-11.0) Red Blood Count 4.85x10^6/uL (4.30-5.70) Hemoglobin 15.5g/dL (13.0-17.5) Hematocrit 45.6% (39.0-53.0) Mean Corpuscular Volume 94fL (79-100) Mean Corpuscular Hemoglobin 32pg (25-35) Mean Corpuscular Hemoglobin Concent 34g/dL (31-37) Red Cell Distribution Width 13.8% (11.5-14.5) Platelet Count 227x10^3/uL (140-400) Neutrophils (%) (Auto) 52% (31-73) Lymphocytes (%) (Auto) 33% (24-48) Monocytes (%) (Auto) 7% (0-9) Eosinophils (%) (Auto) 6% (0-3) Basophils (%) (Auto) 1% (0-3) Neutrophils # (Auto) 3.5x10^3uL (1.8-7.7) Lymphocytes # (Auto) 2.2x10^3/uL (1.0-4.8) Monocytes # (Auto) 0.5x10^3/uL (0.0-1.1) Eosinophils # (Auto) 0.4x10^3/uL (0.0-0.7) Basophils # (Auto) 0.1x10^3/uL (0.0-0.2) Sodium Level 137mmol/L (136-145) Potassium Level 4.3mmol/L (3.5-5.1) Chloride Level 103mmol/L (98-107) Carbon Dioxide Level 27mmol/L (21-32) Anion Gap 7 (6-14) Blood Urea Nitrogen 12mg/dL (8-26) Creatinine 0.8mg/dL (0.7-1.3) Estimated GFR (Cockcroft-Gault) 101.5 Glucose Level 93mg/dL (70-99) Calcium Level 8.9mg/dL (8.5-10.1) Triglycerides Level 123mg/dL (0-150) Cholesterol Level 179mg/dL (0-200) LDL Cholesterol, Calculated 111mg/dL (0-100) VLDL Cholesterol, Calculated 25mg/dL (0-40) Non-HDL Cholesterol Calculated 136mg/dL (0-129) HDL Cholesterol 43mg/dL (40-60) Cholesterol/HDL Ratio 4.2 Assessment and Plan Assessmemt and Plan Problems Medical Problems: (1) Arm numbness left Status: Acute (2) Left arm numbness Status: Acute Problems: Comment Review of Relevant I have reviewed the following items kasandra (where applicable) has been applied. Labs Laboratory Tests Test 10/09/16 11:43 10/09/16 12:25 10/09/16 17:30 10/09/16 23:10 White Blood Count 8.1x10^3/uL (4.0-11.0) Red Blood Count 5.22x10^6/uL (4.30-5.70) Hemoglobin 16.6g/dL (13.0-17.5) Hematocrit 48.8% (39.0-53.0) Mean Corpuscular Volume 94fL (79-100) Mean Corpuscular Hemoglobin 32pg (25-35) Mean Corpuscular Hemoglobin Concent 34g/dL (31-37) Red Cell Distribution Width 13.6% (11.5-14.5) Platelet Count 261x10^3/uL (140-400) Neutrophils (%) (Auto) 66% (31-73) Lymphocytes (%) (Auto) 23% (24-48) Monocytes (%) (Auto) 5% (0-9) Eosinophils (%) (Auto) 5% (0-3) Basophils (%) (Auto) 1% (0-3) Neutrophils # (Auto) 5.4x10^3uL (1.8-7.7) Lymphocytes # (Auto) 1.9x10^3/uL (1.0-4.8) Monocytes # (Auto) 0.4x10^3/uL (0.0-1.1) Eosinophils # (Auto) 0.4x10^3/uL (0.0-0.7) Basophils # (Auto) 0.1x10^3/uL (0.0-0.2) Sodium Level 135mmol/L (136-145) Potassium Level 4.5mmol/L (3.5-5.1) Chloride Level 100mmol/L (98-107) Carbon Dioxide Level 28mmol/L (21-32) Anion Gap 7 (6-14) Blood Urea Nitrogen 8mg/dL (8-26) Creatinine 0.8mg/dL (0.7-1.3) Estimated GFR (Cockcroft-Gault) 101.5 Glucose Level 86mg/dL (70-99) Calcium Level 9.3mg/dL (8.5-10.1) Troponin I Quantitative < 0.017ng/mL (0.000-0.055) < 0.017ng/mL (0.000-0.055) < 0.017ng/mL (0.000-0.055) Vitamin B12 Level 323pg/mL (247-911) Urine Opiates Screen Neg (NEG) Urine Methadone Screen Neg (NEG) Urine Barbiturates Neg (NEG) Urine Phencyclidine Screen Neg (NEG) Urine Amphetamine/Methamphetamine Pos (NEG) Urine Benzodiazepines Screen Neg (NEG) Urine Cocaine Screen Neg (NEG) Urine Cannabinoids Screen Pos (NEG) Urine Ethyl Alcohol Pos (NEG) Test 10/10/16 03:10 White Blood Count 6.6x10^3/uL (4.0-11.0) Red Blood Count 4.85x10^6/uL (4.30-5.70) Hemoglobin 15.5g/dL (13.0-17.5) Hematocrit 45.6% (39.0-53.0) Mean Corpuscular Volume 94fL (79-100) Mean Corpuscular Hemoglobin 32pg (25-35) Mean Corpuscular Hemoglobin Concent 34g/dL (31-37) Red Cell Distribution Width 13.8% (11.5-14.5) Platelet Count 227x10^3/uL (140-400) Neutrophils (%) (Auto) 52% (31-73) Lymphocytes (%) (Auto) 33% (24-48) Monocytes (%) (Auto) 7% (0-9) Eosinophils (%) (Auto) 6% (0-3) Basophils (%) (Auto) 1% (0-3) Neutrophils # (Auto) 3.5x10^3uL (1.8-7.7) Lymphocytes # (Auto) 2.2x10^3/uL (1.0-4.8) Monocytes # (Auto) 0.5x10^3/uL (0.0-1.1) Eosinophils # (Auto) 0.4x10^3/uL (0.0-0.7) Basophils # (Auto) 0.1x10^3/uL (0.0-0.2) Sodium Level 137mmol/L (136-145) Potassium Level 4.3mmol/L (3.5-5.1) Chloride Level 103mmol/L (98-107) Carbon Dioxide Level 27mmol/L (21-32) Anion Gap 7 (6-14) Blood Urea Nitrogen 12mg/dL (8-26) Creatinine 0.8mg/dL (0.7-1.3) Estimated GFR (Cockcroft-Gault) 101.5 Glucose Level 93mg/dL (70-99) Calcium Level 8.9mg/dL (8.5-10.1) Triglycerides Level 123mg/dL (0-150) Cholesterol Level 179mg/dL (0-200) LDL Cholesterol, Calculated 111mg/dL (0-100) VLDL Cholesterol, Calculated 25mg/dL (0-40) Non-HDL Cholesterol Calculated 136mg/dL (0-129) HDL Cholesterol 43mg/dL (40-60) Cholesterol/HDL Ratio 4.2 Laboratory Tests Test 10/09/16 12:25 10/09/16 17:30 10/09/16 23:10 10/10/16 03:10 Urine Opiates Screen Neg (NEG) Urine Methadone Screen Neg (NEG) Urine Barbiturates Neg (NEG) Urine Phencyclidine Screen Neg (NEG) Urine Amphetamine/Methamphetamine Pos (NEG) Urine Benzodiazepines Screen Neg (NEG) Urine Cocaine Screen Neg (NEG) Urine Cannabinoids Screen Pos (NEG) Urine Ethyl Alcohol Pos (NEG) Troponin I Quantitative < 0.017ng/mL (0.000-0.055) < 0.017ng/mL (0.000-0.055) White Blood Count 6.6x10^3/uL (4.0-11.0) Red Blood Count 4.85x10^6/uL (4.30-5.70) Hemoglobin 15.5g/dL (13.0-17.5) Hematocrit 45.6% (39.0-53.0) Mean Corpuscular Volume 94fL (79-100) Mean Corpuscular Hemoglobin 32pg (25-35) Mean Corpuscular Hemoglobin Concent 34g/dL (31-37) Red Cell Distribution Width 13.8% (11.5-14.5) Platelet Count 227x10^3/uL (140-400) Neutrophils (%) (Auto) 52% (31-73) Lymphocytes (%) (Auto) 33% (24-48) Monocytes (%) (Auto) 7% (0-9) Eosinophils (%) (Auto) 6% (0-3) Basophils (%) (Auto) 1% (0-3) Neutrophils # (Auto) 3.5x10^3uL (1.8-7.7) Lymphocytes # (Auto) 2.2x10^3/uL (1.0-4.8) Monocytes # (Auto) 0.5x10^3/uL (0.0-1.1) Eosinophils # (Auto) 0.4x10^3/uL (0.0-0.7) Basophils # (Auto) 0.1x10^3/uL (0.0-0.2) Sodium Level 137mmol/L (136-145) Potassium Level 4.3mmol/L (3.5-5.1) Chloride Level 103mmol/L (98-107) Carbon Dioxide Level 27mmol/L (21-32) Anion Gap 7 (6-14) Blood Urea Nitrogen 12mg/dL (8-26) Creatinine 0.8mg/dL (0.7-1.3) Estimated GFR (Cockcroft-Gault) 101.5 Glucose Level 93mg/dL (70-99) Calcium Level 8.9mg/dL (8.5-10.1) Triglycerides Level 123mg/dL (0-150) Cholesterol Level 179mg/dL (0-200) LDL Cholesterol, Calculated 111mg/dL (0-100) VLDL Cholesterol, Calculated 25mg/dL (0-40) Non-HDL Cholesterol Calculated 136mg/dL (0-129) HDL Cholesterol 43mg/dL (40-60) Cholesterol/HDL Ratio 4.2 Medications Current Medications Ondansetron HCl (Zofran) 4 mg PRN Q8HRS PRN IV NAUSEA/VOMITING; Start 10/09/16 at 13:15; Stop 10/10/16 at 13:14 Acetaminophen (Tylenol) 650 mg PRN Q4HRS PRN PO FEVER; Start 10/09/16 at 13:15 ; Stop 10/10/16 at 13:14 Aspirin (Olga Aspirin) 325 mg DAILYWBKFT PO Last administered on 10/10/16 09: 32; Start 10/09/16 at 16:00 Gabapentin (Neurontin) 100 mg TID PO Last administered on 10/10/16 09:31; Start 10/09/16 at 21:00 Thiamine HCl (Vitamin B-1) 100 mg DAILY PO Last administered on 10/10/16 09:32 ; Start 10/09/16 at 17:00 Nicotine (Nicoderm Cq 21mg) 1 patch PRN DAILY PRN TD SMOKING CESSATION Last administered on 10/10/16 09:32; Start 10/09/16 at 16:45 Acetaminophen (Tylenol) 325 mg PRN Q6HRS PRN PO MILD PAIN / TEMP; Start at 17:15 Acetaminophen/ Hydrocodone Bitart (Lortab 5/325) 1 tab PRN Q6HRS PRN PO MODERATE TO SEVERE PAIN; Start 10/09/16 at 17:15 Hydralazine HCl (Apresoline) 10 mg PRN Q4HRS PRN IVP ELEVATED BP, SEE COMMENTS ; Start 10/09/16 at 17:15 Ondansetron HCl (Zofran) 4 mg PRN Q8HRS PRN IV NAUSEA/VOMITING; Start 10/09/16 at 17:15 Albuterol Sulfate (Ventolin Neb Soln) 2.5 mg PRN Q4HRS PRN NEB SHORTNESS OF BREATH; Start 10/09/16 at 17:15 Active Scripts Active Reported Adderall Xr 30 Mg Capsule (Dextroamphetamine/Amphetamine) 30 Mg Cap.er.24h 30 Mg PO DAILY Vitals/I & O Vital Sign - Last 24 Hours 10/09/16 10/09/16 10/09/16 10/09/16 12:00 12:30 13:00 13:30 Pulse 67 63 71 63 Resp 20 18 19 18 B/P 152/82 130/79 116/81 139/83 Pulse Ox 98 97 98 97 O2 Delivery Room Air Room Air 10/09/16 10/09/16 10/09/16 10/09/16 14:16 14:40 15:07 19:00 Temp 98.3 98.3 97.7 98.3 98.3 97.7 Pulse 68 68 67 Resp 22 18 B/P 138/83 138/83 122/78 Pulse Ox 99 99 96 O2 Delivery Room Air Room Air Room Air 10/09/16 10/09/16 10/09/16 10/10/16 20:00 20:59 22:47 02:52 Temp 98.0 97.9 98.0 97.9 Pulse 69 60 Resp 19 18 B/P 120/73 109/68 Pulse Ox 96 95 96 O2 Delivery Room Air Room Air Room Air Room Air 10/10/16 10/10/16 10/10/16 07:00 08:15 10:56 Temp 97.9 98.1 97.9 98.1 Pulse 62 61 Resp 18 18 B/P 121/74 129/83 Pulse Ox 94 97 O2 Delivery Room Air Room Air Room Air Intake and Output 10/09/16 10/09/16 10/10/16 14:59 22:59 06:59 Intake Total 360 ml 760 ml Balance 360 ml 760 ml AR DE LOS SANTOS MD October 10, 2016 11:56
[2016-10-10] MEDS ORDERED: ASPI-482 PO (12:54)
[2016-10-10] MEDS ORDERED: Nicotine TD (12:54)
--- NOTE | 2016-10-10 14:19 | PDOC ---
PROGRESS NOTES Assessment Problems Medical Problems: (1) Arm numbness left Status: Acute (2) Left arm numbness Status: Acute Dr. Olivas found left radial hypesthesia, for me it's left ulnar dorsal cutaneous hypesthesia Stroke workup negative, no sign of radiculopathy Marijuana use. Amphetamine positive in test but he stated he takes 30 mg Adderall daily. Plan Aspirin Neurontin F/U c me in 3 weeks for EMG study if no better Okay for discharge Subjective No change in numbness, left dorsal hand Objective Vital Signs Date Time Temp Pulse Resp B/P Pulse Ox O2 Delivery O2 Flow Rate FiO2 10/10/16 10:56 98.1 61 18 129/83 97 Room Air 98.1 Intake and Output 10/10/16 07:00 Intake Total 1120 ml Balance 1120 ml Intake Oral 1120 ml # Voids 8 PHYSICAL EXAM Alert. Oriented to time, place and person. PERRL. EOMI. CN: no focal findings. Muscle tone: normal. Muscle strength: 5/5 DTR: 2+ Plantar reflex: flexor Gait: not examined in bed. Sensory exam: hypesthesia, left ulnar dorsal cutaneous nerve. No cerebellar signs elicited. Review of Relevant I have reviewed the following items kasandra (where applicable) has been applied. Labs Laboratory Tests Test 10/09/16 11:43 10/09/16 12:25 10/09/16 17:30 10/09/16 23:10 White Blood Count 8.1x10^3/uL (4.0-11.0) Red Blood Count 5.22x10^6/uL (4.30-5.70) Hemoglobin 16.6g/dL (13.0-17.5) Hematocrit 48.8% (39.0-53.0) Mean Corpuscular Volume 94fL (79-100) Mean Corpuscular Hemoglobin 32pg (25-35) Mean Corpuscular Hemoglobin Concent 34g/dL (31-37) Red Cell Distribution Width 13.6% (11.5-14.5) Platelet Count 261x10^3/uL (140-400) Neutrophils (%) (Auto) 66% (31-73) Lymphocytes (%) (Auto) 23% (24-48) Monocytes (%) (Auto) 5% (0-9) Eosinophils (%) (Auto) 5% (0-3) Basophils (%) (Auto) 1% (0-3) Neutrophils # (Auto) 5.4x10^3uL (1.8-7.7) Lymphocytes # (Auto) 1.9x10^3/uL (1.0-4.8) Monocytes # (Auto) 0.4x10^3/uL (0.0-1.1) Eosinophils # (Auto) 0.4x10^3/uL (0.0-0.7) Basophils # (Auto) 0.1x10^3/uL (0.0-0.2) Sodium Level 135mmol/L (136-145) Potassium Level 4.5mmol/L (3.5-5.1) Chloride Level 100mmol/L (98-107) Carbon Dioxide Level 28mmol/L (21-32) Anion Gap 7 (6-14) Blood Urea Nitrogen 8mg/dL (8-26) Creatinine 0.8mg/dL (0.7-1.3) Estimated GFR (Cockcroft-Gault) 101.5 Glucose Level 86mg/dL (70-99) Calcium Level 9.3mg/dL (8.5-10.1) Troponin I Quantitative < 0.017ng/mL (0.000-0.055) < 0.017ng/mL (0.000-0.055) < 0.017ng/mL (0.000-0.055) Vitamin B12 Level 323pg/mL (247-911) Urine Opiates Screen Neg (NEG) Urine Methadone Screen Neg (NEG) Urine Barbiturates Neg (NEG) Urine Phencyclidine Screen Neg (NEG) Urine Amphetamine/Methamphetamine Pos (NEG) Urine Benzodiazepines Screen Neg (NEG) Urine Cocaine Screen Neg (NEG) Urine Cannabinoids Screen Pos (NEG) Urine Ethyl Alcohol Pos (NEG) Test 10/10/16 03:10 White Blood Count 6.6x10^3/uL (4.0-11.0) Red Blood Count 4.85x10^6/uL (4.30-5.70) Hemoglobin 15.5g/dL (13.0-17.5) Hematocrit 45.6% (39.0-53.0) Mean Corpuscular Volume 94fL (79-100) Mean Corpuscular Hemoglobin 32pg (25-35) Mean Corpuscular Hemoglobin Concent 34g/dL (31-37) Red Cell Distribution Width 13.8% (11.5-14.5) Platelet Count 227x10^3/uL (140-400) Neutrophils (%) (Auto) 52% (31-73) Lymphocytes (%) (Auto) 33% (24-48) Monocytes (%) (Auto) 7% (0-9) Eosinophils (%) (Auto) 6% (0-3) Basophils (%) (Auto) 1% (0-3) Neutrophils # (Auto) 3.5x10^3uL (1.8-7.7) Lymphocytes # (Auto) 2.2x10^3/uL (1.0-4.8) Monocytes # (Auto) 0.5x10^3/uL (0.0-1.1) Eosinophils # (Auto) 0.4x10^3/uL (0.0-0.7) Basophils # (Auto) 0.1x10^3/uL (0.0-0.2) Sodium Level 137mmol/L (136-145) Potassium Level 4.3mmol/L (3.5-5.1) Chloride Level 103mmol/L (98-107) Carbon Dioxide Level 27mmol/L (21-32) Anion Gap 7 (6-14) Blood Urea Nitrogen 12mg/dL (8-26) Creatinine 0.8mg/dL (0.7-1.3) Estimated GFR (Cockcroft-Gault) 101.5 Glucose Level 93mg/dL (70-99) Calcium Level 8.9mg/dL (8.5-10.1) Triglycerides Level 123mg/dL (0-150) Cholesterol Level 179mg/dL (0-200) LDL Cholesterol, Calculated 111mg/dL (0-100) VLDL Cholesterol, Calculated 25mg/dL (0-40) Non-HDL Cholesterol Calculated 136mg/dL (0-129) HDL Cholesterol 43mg/dL (40-60) Cholesterol/HDL Ratio 4.2 Laboratory Tests Test 10/09/16 17:30 10/09/16 23:10 10/10/16 03:10 Troponin I Quantitative < 0.017ng/mL (0.000-0.055) < 0.017ng/mL (0.000-0.055) White Blood Count 6.6x10^3/uL (4.0-11.0) Red Blood Count 4.85x10^6/uL (4.30-5.70) Hemoglobin 15.5g/dL (13.0-17.5) Hematocrit 45.6% (39.0-53.0) Mean Corpuscular Volume 94fL (79-100) Mean Corpuscular Hemoglobin 32pg (25-35) Mean Corpuscular Hemoglobin Concent 34g/dL (31-37) Red Cell Distribution Width 13.8% (11.5-14.5) Platelet Count 227x10^3/uL (140-400) Neutrophils (%) (Auto) 52% (31-73) Lymphocytes (%) (Auto) 33% (24-48) Monocytes (%) (Auto) 7% (0-9) Eosinophils (%) (Auto) 6% (0-3) Basophils (%) (Auto) 1% (0-3) Neutrophils # (Auto) 3.5x10^3uL (1.8-7.7) Lymphocytes # (Auto) 2.2x10^3/uL (1.0-4.8) Monocytes # (Auto) 0.5x10^3/uL (0.0-1.1) Eosinophils # (Auto) 0.4x10^3/uL (0.0-0.7) Basophils # (Auto) 0.1x10^3/uL (0.0-0.2) Sodium Level 137mmol/L (136-145) Potassium Level 4.3mmol/L (3.5-5.1) Chloride Level 103mmol/L (98-107) Carbon Dioxide Level 27mmol/L (21-32) Anion Gap 7 (6-14) Blood Urea Nitrogen 12mg/dL (8-26) Creatinine 0.8mg/dL (0.7-1.3) Estimated GFR (Cockcroft-Gault) 101.5 Glucose Level 93mg/dL (70-99) Calcium Level 8.9mg/dL (8.5-10.1) Triglycerides Level 123mg/dL (0-150) Cholesterol Level 179mg/dL (0-200) LDL Cholesterol, Calculated 111mg/dL (0-100) VLDL Cholesterol, Calculated 25mg/dL (0-40) Non-HDL Cholesterol Calculated 136mg/dL (0-129) HDL Cholesterol 43mg/dL (40-60) Cholesterol/HDL Ratio 4.2 Medications Current Medications Ondansetron HCl (Zofran) 4 mg PRN Q8HRS PRN IV NAUSEA/VOMITING; Start 10/09/16 at 13:15; Stop 10/10/16 at 13:14; Status DC Acetaminophen (Tylenol) 650 mg PRN Q4HRS PRN PO FEVER; Start 10/09/16 at 13:15 ; Stop 10/10/16 at 13:14; Status DC Aspirin (Olga Aspirin) 325 mg DAILYWBKFT PO Last administered on 10/10/16 09: 32; Start 10/09/16 at 16:00 Gabapentin (Neurontin) 100 mg TID PO Last administered on 10/10/16 09:31; Start 10/09/16 at 21:00 Thiamine HCl (Vitamin B-1) 100 mg DAILY PO Last administered on 10/10/16 09:32 ; Start 10/09/16 at 17:00 Nicotine (Nicoderm Cq 21mg) 1 patch PRN DAILY PRN TD SMOKING CESSATION Last administered on 10/10/16 09:32; Start 10/09/16 at 16:45 Acetaminophen (Tylenol) 325 mg PRN Q6HRS PRN PO MILD PAIN / TEMP; Start at 17:15 Acetaminophen/ Hydrocodone Bitart (Lortab 5/325) 1 tab PRN Q6HRS PRN PO MODERATE TO SEVERE PAIN; Start 10/09/16 at 17:15 Hydralazine HCl (Apresoline) 10 mg PRN Q4HRS PRN IVP ELEVATED BP, SEE COMMENTS ; Start 10/09/16 at 17:15 Ondansetron HCl (Zofran) 4 mg PRN Q8HRS PRN IV NAUSEA/VOMITING; Start 10/09/16 at 17:15 Albuterol Sulfate (Ventolin Neb Soln) 2.5 mg PRN Q4HRS PRN NEB SHORTNESS OF BREATH; Start 10/09/16 at 17:15 Active Scripts Active [Nicotine] 1 PATCH Patch 1 Patch TD PRN DAILY PRN Reported Adderall Xr 30 Mg Capsule (Dextroamphetamine/Amphetamine) 30 Mg Cap.er.24h 30 Mg PO DAILY Vitals/I & O Vital Sign - Last 24 Hours 10/09/16 10/09/16 10/09/16 10/09/16 14:16 14:40 15:07 19:00 Temp 98.3 98.3 97.7 98.3 98.3 97.7 Pulse 68 68 67 Resp 22 18 B/P 138/83 138/83 122/78 Pulse Ox 99 99 96 O2 Delivery Room Air Room Air Room Air 10/09/16 10/09/16 10/09/16 10/10/16 20:00 20:59 22:47 02:52 Temp 98.0 97.9 98.0 97.9 Pulse 69 60 Resp 19 18 B/P 120/73 109/68 Pulse Ox 96 95 96 O2 Delivery Room Air Room Air Room Air Room Air 10/10/16 10/10/16 10/10/16 07:00 08:15 10:56 Temp 97.9 98.1 97.9 98.1 Pulse 62 61 Resp 18 18 B/P 121/74 129/83 Pulse Ox 94 97 O2 Delivery Room Air Room Air Room Air Intake and Output 10/09/16 10/09/16 10/10/16 15:00 23:00 07:00 Intake Total 360 ml 760 ml Balance 360 ml 760 ml Images Carotids: normal Brain MRI: FINDINGS The ventricles and sulci are within normal limits for age. There is no acute intracranial hemorrhage or extra-axial fluid collection. There is no mass effect or midline shift. There is no restricted diffusion to suggest an acute infarct. Cervicomedullary junction is unremarkable. Intracranial flow voids are preserved. There is pansinus mucosal thickening with left sphenoid sinus retention cyst. Mastoid air cells are clear. IMPRESSION No acute intracranial findings. Echo negative, final report pending JUMA LEE MD October 10, 2016 14:19
[2016-10-10 15:00] VITALS: BP 115/77
--- NOTE | 2016-10-10 15:03 | CARD ---
APPROVED REPORT EXAM: Two-dimensional and M-mode echocardiogram with Doppler and color Doppler. Other Information Quality : GoodHR: 59bpm Rhythm : Bradycardia INDICATION Left arm numbness 2D DIMENSIONS RVDd2.2 (2.9-3.5cm)Left Atrium(2D)2.6 (1.6-4.0cm) IVSd0.9 (0.7-1.1cm)Aortic Root(2D)2.9 (2.0-3.7cm) LVDd4.0 (3.9-5.9cm)LVOT Diameter2.3 (1.8-2.4cm) PWd0.8 (0.7-1.1cm)LVDs2.7 (2.5-4.0cm) FS (%) 30.7 %SV40.2 ml LVEF(%)58.8 (>50%) Aortic Valve AoV Peak Satya.109.8cm/sAoV VTI22.1cm AO Peak GR.4.8mmHgLVOT Peak Satya.93.3cm/s AO Mean GR.3mmHgAVA (VMAX)3.59cm2 Mitral Valve MV E Budfomfa49.3cm/sMV E Peak Gr.2mmHg MV DECEL [id number] A Hzbyyivg38.2cm/s MV E Mean Gr.1mmHgE/A Ratio1.6 MV A [id number] Pulmonary Valve PV Peak Amixpqwv78.2cm/s Pulmonary Vein S1 Jbgsbfnd85.8cm/sD2 Swlsoubj84.5cm/s PVa [id number] LEFT VENTRICLE The left ventricle is normal size. There is normal left ventricular wall thickness. The left ventricu lar systolic function is normal and the ejection fraction is within normal range. The Ejection Fracti on is 55-60%. There is normal LV segmental wall motion. The left ventricular diastolic function and f illing is normal for age. No left ventricle thrombus noted on this study. RIGHT VENTRICLE The right ventricle is normal size. There is normal right ventricular wall thickness. The right ventr icular systolic function is normal. ATRIA The left atrium size is normal. The right atrium size is normal. The interatrial septum is intact wit h no evidence for an atrial septal defect or patent foramen ovale as noted on 2-D or Doppler imaging. AORTIC VALVE The aortic valve is normal in structure and function. Doppler and Color Flow revealed no significant aortic regurgitation. There is no significant aortic valvular stenosis. MITRAL VALVE The mitral valve is normal in structure and function. There is no evidence of mitral valve prolapse. There is no mitral valve stenosis. Doppler and Color Flow revealed no mitral valve regurgitation note d. TRICUSPID VALVE Doppler and Color Flow revealed trace tricuspid regurgitation.TV Unable to determine pulmonary artery pressure at exam time. PULMONIC VALVE Doppler and Color Flow revealed trace pulmonic valvular regurgitation. There is no pulmonic valvular stenosis. GREAT VESSELS The aortic root is normal in size. The ascending aorta is normal in size. The pulmonary artery is nor mal. The IVC is normal in size and collapses >50% with inspiration. PERICARDIAL EFFUSION There is no evidence of significant pericardial effusion. Critical Notification Critical Value: No <Conclusion> The left ventricular systolic function is normal and the ejection fraction is within normal range. Th e Ejection Fraction is 55-60%. There is normal LV segmental wall motion. The left ventricular diastolic function and filling is normal for age.
== END 2016-10-10 16:37 | disposition home or self-care (01) | DRG 93 ==
LOC: ER 11:33 → 5 SOUTH 13:00
PROVIDERS: ADMIT Internal Medicine; ATTEND Internal Medicine
DX: R20.0 Anesthesia of skin (principal); F17.210 Nicotine dependence, cigarettes, uncomplicated; F90.9 Attention-deficit hyperactivity disorder, unspecified type; F12.90 Cannabis use, unspecified, uncomplicated; I73.9 Peripheral vascular disease, unspecified; G62.9 Polyneuropathy, unspecified; F10.10 Alcohol abuse, uncomplicated; J44.9 Chronic obstructive pulmonary disease, unspecified; Z79.899 Other long term (current) drug therapy; Z79.82 Long term (current) use of aspirin
CPT/HCPCS: 36415; 70450; 70551; 71020; 80048; 80061; 82607; 84484; 85027; 93005; 93306; 93880; 94250; 94760; 99406; G0481; 99285-25